=== PATIENT | female | born 1985 | race Asian ===

== ENCOUNTER 2019-04-21 08:09 | Inpatient (IN) | payer OTHER ==
[~2019-04-21] VITALS: Ht 157.5 cm; Wt 56.7 kg
[2019-05-17] MEDS ORDERED: PRENATAL TABLE1 EAC1 PO (21:11)
== END 2019-05-19 14:50 | disposition home or self-care (01) | DRG 807 ==
LOC: OB/GYN 05-04 12:00 → LDR 05-17 20:31 → SURG-SUITE 05-17 20:31 → OB/GYN 05-25 12:00
PROVIDERS: ADMIT Obstetrics & Gynecology Maternal & Fetal Medicine
PROC: 10E0XZZ Delivery of Products of Conception, External Approach (ICD-10-PCS; principal; 2019-05-17)
PROC: 0HQ9XZZ Repair Perineum Skin, External Approach (ICD-10-PCS; 2019-05-17)
PROC: 4A1HXCZ Monitoring of Products of Conception, Cardiac Rate, External Approach (ICD-10-PCS; 2019-05-17)
DX: O70.0 First degree perineal laceration during delivery (principal); Z37.0 Single live birth; Z3A.38 38 weeks gestation of pregnancy; Z22.330 Carrier of Group B streptococcus

== ENCOUNTER 2022-09-10 09:01 | Outpatient (CLI) | payer OTHER ==
[~2022-09-10 09:01] MED LIST: PRENATAL TABLE1 EAC1 PO
== END 2022-09-10 10:01 | disposition home or self-care (01) ==
LOC: NST 09:01
PROVIDERS: ATTEND Obstetrics & Gynecology Gynecology
DX: Z34.83 Encounter for supervision of other normal pregnancy, third trimester (principal)

== ENCOUNTER 2022-10-08 19:37 | Inpatient (IN) | payer OTHER ==
[~2022-10-08] VITALS: Ht 157.5 cm; Wt 56.2 kg
== END 2022-10-10 11:01 | disposition home or self-care (01) | DRG 807 ==
LOC: LDR 19:37 → OB/GYN 19:37 → LDR 10-12 09:59
PROVIDERS: ADMIT Obstetrics & Gynecology Gynecology; ATTEND Obstetrics & Gynecology Gynecology
PROC: 10E0XZZ Delivery of Products of Conception, External Approach (ICD-10-PCS; principal; 2022-10-08)
PROC: 0UQG7ZZ Repair Vagina, Via Natural or Artificial Opening (ICD-10-PCS; 2022-10-08)
PROC: 4A1HXCZ Monitoring of Products of Conception, Cardiac Rate, External Approach (ICD-10-PCS; 2022-10-08)
DX: O71.4 Obstetric high vaginal laceration alone (principal); Z37.0 Single live birth; Z3A.39 39 weeks gestation of pregnancy; Z20.822 Contact with and (suspected) exposure to COVID-19

== ENCOUNTER 2025-01-12 07:53 | Outpatient (CLI) | payer OTHER | END 2025-01-12 08:00 | disposition home or self-care (01) | LOC: MAMO-SONO 07:53 | PROVIDERS: ATTEND Obstetrics & Gynecology | DX: N63.21 Unspecified lump in the left breast, upper outer quadrant (principal); N63.12 Unspecified lump in the right breast, upper inner quadrant ==

== ENCOUNTER 2025-01-13 13:19 | Outpatient (CLI) | payer OTHER | END 2025-01-13 13:28 | disposition home or self-care (01) | LOC: SONOGRAMA 13:19 | DX: R94.6 Abnormal results of thyroid function studies (principal) ==